=== PATIENT | female | born 2000 | race Caucasian/White ===

== ENCOUNTER 2022-02-12 18:03 | Emergency (ER) | payer OTHER ==
[2022-02-12] MEDS ORDERED: BENZONATATE 100 MG CAPSULE PO STA (18:25)
[2022-02-12] MEDS ORDERED: ONDANSETRON ODT 4 MG TABLET TL STA (18:25)
[2022-02-12 19:34] LABS: CORONAVIRUS 229E-RESP PCR NOT DETECTED
[2022-02-12 19:35] LABS: B. PARAPERTUSSIS- RESP PCR PAN NOT DETECTED; B. PERTUSSIS- RESP PCR PANEL NOT DETECTED; C. PNEUMONIAE- RESP PCR PANEL NOT DETECTED; CORONAVIRUS HKU1-RESP PCR NOT DETECTED; CORONAVIRUS NL63-RESP PCR NOT DETECTED; CORONAVIRUS OC43-RESP PCR NOT DETECTED; HUMAN METAPNEUMOVIRUS NOT DETECTED; INFLUENZA A- RESP PCR PANEL NOT DETECTED; INFLUENZA B - RESP PCR PANEL NOT DETECTED; M. PNEUMONIAE- RESP PCR PANEL NOT DETECTED; PARAINFLUENZA VIRUS 1 NOT DETECTED; PARAINFLUENZA VIRUS 2 NOT DETECTED; PARAINFLUENZA VIRUS 3 NOT DETECTED; PARAINFLUENZA VIRUS 4 NOT DETECTED; RHINOVIRUS/ENTEROVIRUS NOT DETECTED; RSV- RESP PCR PANEL NOT DETECTED; SARS-CoV-2 -RESP PCR PANEL NOT DETECTED
--- NOTE | 2022-02-12 19:55 | ED Physician Documentation ---
History of Present Illness - Stated complaint Stated Complaint: THROAT PX,FEVER - Chief complaint Chief Complaint: Heent - History obtained from History obtained from: Patient - History of Present Illness Timing: Today Pain level max: 0 Pain level now: 0 - Additonal information Additional information: 21-year-old female presents to the emergency department for cough, sore throat, nausea, fever. Started today. She states that she needs a note for work. Her roommate is sick with same. She is COVID vaccinated. Nothing makes it better or worse. Denies any possibility of . Review of Systems Constitutional: reports: Fever Ears: denies: Ear pain Nose: reports: Rhinorrhea / runny nose, Congestion Throat: reports: Sore throat Cardiac: denies: Chest pain / pressure Respiratory: reports: Cough. denies: Dyspnea GI: reports: Nausea. denies: Abdominal Pain, Vomiting, Diarrhea Skin: denies: Rash Musculoskeletal: denies: Neck pain Neurologic: denies: Headache PD PAST MEDICAL HISTORY - Past Medical History Past Medical History: No - Past Surgical History Past Surgical History: No - Present Medications Home Medications: Ambulatory Orders Medication Instructions Recorded Confirmed No Known Home Medications 02/12/22 02/12/22 - Allergies Allergies/Adverse Reactions: Allergies Allergy/AdvReac Type Severity Reaction Status Date / Time No Known Drug Allergies Allergy Verified 02/12/22 18:13 - Living Situation Living Arrangement: reports: At home - Social History Does the pt smoke?: No Does the pt have substance abuse?: No PD ED PE NORMAL - Vitals Vital signs reviewed: Yes - General General: Alert and oriented X 3, No acute distress - HEENT HEENT: PERRL, Ears normal, Moist mucous membranes, Pharynx benign - Neck Neck: Supple, no meningeal sign - Cardiac Cardiac: RRR, Strong equal pulses - Respiratory Respiratory: No respiratory distress, Clear bilaterally - Abdomen Abdomen: Soft, Non tender, Non distended - Derm Derm: Warm and dry - Extremities Extremities: No edema, No calf tenderness / cord - Neuro Neuro: Alert and oriented X 3 - Psych Psych: Normal mood, Normal affect Results - Vitals Vitals: Vital Signs - 24 hr 02/12/22 02/12/22 18:09 20:18 Temperature 36.5 C 37.1 C Heart Rate 84 82 Respiratory 16 16 Rate Blood Pressure 117/72 110/62 O2 Saturation 100 99 Oxygen O2 Source Room air - Labs Labs: Laboratory Tests 02/12/22 18:35 Nasal Adenovirus (PCR) NOT DETECTED Nasal B. parapertussis DNA (PCR) NOT DETECTED Nasal Coronavir 229E PCR NOT DETECTED Nasal Coronavir HKU1 PCR NOT DETECTED Nasal Coronavir NL63 PCR NOT DETECTED Nasal Coronavir OC43 PCR NOT DETECTED Nasal Enterovir/Rhinovir PCR NOT DETECTED Nasal Influenza B PCR NOT DETECTED Nasal Influenza A PCR NOT DETECTED Nasal Parainfluen 1 PCR NOT DETECTED Nasal Parainfluen 2 PCR NOT DETECTED Nasal Parainfluen 3 PCR NOT DETECTED Nasal Parainfluen 4 PCR NOT DETECTED Nasal RSV (PCR) NOT DETECTED Nasal B.pertussis DNA PCR NOT DETECTED Nasal C.pneumoniae (PCR) NOT DETECTED Anish Human Metapneumo PCR NOT DETECTED Nasal M.pneumoniae (PCR) NOT DETECTED Nasal SARS-CoV-2 (PCR) NOT DETECTED PD MEDICAL DECISION MAKING - ED course Complexity details: reviewed results, re-evaluated patient, considered differential, d/w patient ED course: 21-year-old female with what appears to be a viral upper respiratory infection. She is very well-appearing, nontoxic. No hypoxia or respiratory distress. We will continue supportive care and have her follow-up with her doctor. Patient counseled regarding signs and symptoms for which I believe and urgent re- evaluation would be necessary. Patient with good understanding of and agreement to plan and is comfortable going home at this time This document was made in part using voice recognition software. While efforts are made to proofread this document, sound alike and grammatical errors may occur. Departure - Departure Disposition: 01 Home, Self Care Clinical Impression: Viral URI Condition: Good Instructions: ED Viral Syndrome Follow-Up: Your,doctor in 1 week [Other] Comments: Your testing is negative today for COVID and influenza. This appears to be a v iral illness. Please follow-up with your doctor as needed for further care. Return if you worsen. Drink plenty of fluids and Rest Forms: Activity restrictions Discharge Date/Time: 02/12/22 20:18
[2022-02-12 20:20] VITALS: BP 110/62
== END 2022-02-12 20:18 | disposition home or self-care (01) ==
LOC: ED 18:03
DX: J06.9 Acute upper respiratory infection, unspecified (principal); Z20.822 Contact with and (suspected) exposure to COVID-19
CPT/HCPCS: 87633; 99282; 99283; A9270; Q0162

== ENCOUNTER 2022-08-09 10:08 | Outpatient (CLI) | payer OTHER | END 2022-08-09 10:09 | disposition home or self-care (01) | LOC: LAB 10:08 | PROVIDERS: ATTEND Obstetrics & Gynecology | DX: O20.0 Threatened abortion (principal) | CPT/HCPCS: 36415; 84702 ==

== ENCOUNTER 2022-09-29 22:12 | Outpatient (CLI) | payer OTHER ==
--- NOTE | 2022-10-01 08:29 | Ultrasound Report ---
PROCEDURE: Pelvic w/Transvaginal INDICATIONS: RECURRENT MISCARRIAGE TECHNIQUE: Real-time scanning was performed of the pelvic organs, with image documentation. Additional endovagi nal scanning was necessary due to incomplete visualization of the adnexal and endometrial structures by transabdominal scanning. COMPARISON: OB ultrasound, 08/05/2022.. FINDINGS: Uterus: Uterus is anteverted and normal in size at 9.0 x 4.1 x 6.1 cm. The myometrium is heterogene ous. The endometrium measures 11.8 mm in combined thickness. Myometrium and endometrium junction ap pears irregular. Ovaries: The right ovary measures 3.4 x 1.6 x 2.5 cm, with a calculated ovarian volume of 6.9 cc. Th ere is a 1.5 x 1.3 x 1.6 m complex cyst in right ovary, most likely a hematologic cyst. The left ovar y measures 1.9 x 1.7 x 2.6 cm, with a calculated ovarian volume of 4.4 cc. The ovaries have a normal sonographic appearance. Less than 12 follicles can be seen in each ovary. No adnexal masses are se en. Other: No pathologic free abdominal or pelvic fluid. IMPRESSION: 1. Heterogeneous myometrium with irregular junctional zone suggesting adenomyosis. If clinically jl cated, gynecological MRI would be helpful for further evaluation. 2. A 1.9 x 1.7 x 2.6 cm hemorrhagic cyst in right ovary. Reviewed by: Shamika Costa MD on 10/01/2022 8:28 AM PST Approved by: Shamika Costa MD on 10/01/2022 8:28 AM PST Station ID: [id number]
== END 2022-09-29 22:13 | disposition home or self-care (01) ==
LOC: DI 22:12
PROVIDERS: ATTEND Obstetrics & Gynecology
DX: N96 Recurrent pregnancy loss (principal); N83.201 Unspecified ovarian cyst, right side

== ENCOUNTER 2022-10-15 12:52 | Outpatient (CLI) | payer OTHER ==
[2022-10-15 13:45] LABS: THYROID STIMULATING HORMONE 2.23 uIU/mL (0.34-5.60)
[2022-10-15 22:18] LABS: ESTIMATED AVERAGE GLUCOSE 100 mg/dL (70-100); HEMOGLOBIN A1c% 5.1 % (4.27-6.07)
[2022-10-17 16:08] LABS: CARDIOLIPIN IGG <9 GPL U/mL (0-14); CARDIOLIPIN IGM <9 MPL U/mL (0-12)
== END 2022-10-15 12:53 | disposition home or self-care (01) ==
LOC: LAB 12:52
PROVIDERS: ATTEND Obstetrics & Gynecology
DX: N96 Recurrent pregnancy loss (principal)
CPT/HCPCS: 36415; 81599; 83036; 84144; 84443; 85598; 85613; 85732; 86146; 86147

== ENCOUNTER 2022-10-26 15:39 | Emergency (ER) | payer OTHER ==
[2022-10-26 15:47] VITALS: BP 113/65
--- NOTE | 2022-10-26 16:07 | ED Physician Documentation ---
History of Present Illness - Stated complaint Stated Complaint: F/C/V/N - Chief complaint Chief Complaint: Fever - History obtained from History obtained from: Patient - History of Present Illness Timing: Today Pain level max: 2 Pain level now: 1 - Additonal information Additional information: Patient is a 22-year-old female who presents to the emergency department stating that she awoke today with a fever, cough, congestion. Also left ear pain. She was seen at the [facility] and had a COVID and flu swab performed. She states that they told her that she needed to await the results of those tests in order to have a work note, so she came here for a work note as she needs a note for work at the [facility] [employer]. Cough is dry. Emesis x2. No current abdominal pain. Denies any possibility of . No urinary symptoms. Nothing makes it better or worse. 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 HEENT: None Psych: None Musculoskeletal: None Derm: None - Past Surgical History Past Surgical History: No HEENT: Tonsil/Adenoidectomy - Present Medications Home Medications: Ambulatory Orders Medication Instructions Recorded Confirmed Benzonatate [Tessalon] 200 mg PO TID PRN #30 cap 10/26/22 Cetirizine HCl/Pseudoephedrine 1 each PO BID PRN #30 tab 10/26/22 [Zyrtec-D Tablet] Cetirizine [ZyrTEC] 10 mg PO DAILY 10/26/22 10/26/22 Fluticasone [Flonase] 2 sprays EVA DAILY 10/26/22 10/26/22 Ondansetron Odt [Zofran] 4 mg TL Q6H PRN #10 tablet 10/26/22 - Allergies Allergies/Adverse Reactions: Allergies Allergy/AdvReac Type Severity Reaction Status Date / Time No Known Drug Allergies Allergy Verified 10/26/22 15:42 - Social History Does the pt smoke?: No Smoking Status: Never smoker Does the pt drink ETOH?: No Does the pt have substance abuse?: No - Immunizations Immunizations are current?: Yes PD ED PE NORMAL - Vitals Vital signs reviewed: Yes - General General: Alert and oriented X 3, No acute distress - HEENT HEENT: PERRL, Moist mucous membranes, Pharynx benign, Other (Retracted TM bilaterally. no signs of infection) - Neck Neck: Supple, no meningeal sign, No adenopathy - Cardiac Cardiac: RRR, Strong equal pulses - Respiratory Respiratory: No respiratory distress, Clear bilaterally - Abdomen Abdomen: Soft, Non tender, Non distended - Back Back: No CVA TTP, No spinal TTP - Derm Derm: Warm and dry, No rash - Extremities Extremities: No edema - Neuro Neuro: Alert and oriented X 3 - Psych Psych: Normal mood, Normal affect Results - Vitals Vitals: Vital Signs - 24 hr 10/26/22 15:42 Temperature 37.2 C Heart Rate 74 Respiratory 16 Rate Blood Pressure 113/65 O2 Saturation 100 Oxygen O2 Source Room air PD Medical Decision Making - ED course Complexity details: considered differential, d/w patient ED course: 22-year-old female with what appears to be a viral upper respiratory infection. Well-appearing, nontoxic. Afebrile. No hypoxia. No respiratory distress. No evidence of pneumonia, sepsis. No indication for antibiotics. We will place on oral decongestants and have her follow-up with her doctor for further care. Patient counseled regarding signs and symptoms for which I believe and urgent re-evaluation would be necessary. Patient with good understanding of and agreement to plan and is comfortable going home at this time This document was made in part using voice recognition software. While efforts are made to proofread this document, sound alike and grammatical errors may occur. Departure - Departure Disposition: 01 Home, Self Care Clinical Impression: Viral URI Condition: Good Instructions: ED Viral Syndrome Follow-Up: Maicol Carranza MD [Primary Care Provider] - Within 1 week Prescriptions: Benzonatate [Tessalon] 200 mg PO TID PRN #30 cap PRN Reason: Cough Ondansetron Odt [Zofran] 4 mg TL Q6H PRN #10 tablet PRN Reason: Nausea / Vomiting Cetirizine HCl/Pseudoephedrine [Zyrtec-D Tablet] 1 each PO BID PRN #30 tab PRN Reason: nasal congestion Comments: Please follow-up with your doctor for further care. Please return if you worsen. Drink plenty of fluids and rest. Your prescriptions were sent to [facility] in [place]. Please follow-up with the [facility] for the results of the COVID and flu testing you received earlier today. Forms: Activity restrictions Discharge Date/Time: 10/26/22 16:15
== END 2022-10-26 16:15 | disposition home or self-care (01) ==
LOC: ED 15:39
DX: J06.9 Acute upper respiratory infection, unspecified (principal)
CPT/HCPCS: 99283

== ENCOUNTER 2024-03-06 18:25 | Emergency (ER) | payer OTHER ==
[2024-03-06 18:44] VITALS: BP 124/58; O2SAT 100
--- NOTE | 2024-03-06 19:47 | ED Physician Documentation ---
PD HPI LOWER EXT INJURY - Stated complaint Stated Complaint: R FOOT PX - Chief complaint Chief Complaint: Ext Problem - Additional information Additional information: 23-year-old female presents emergency department because her command told her to because of nerve pain to the right foot. Patient had surgery on her right lateral ankle a few years ago where there was a nerve impingement. Patient says that she does not want to be here but is coming into the emergency department because her command told her to if she is able to ambulate without difficulty she is starting to notice some new numbness to the right lateral portion of her foot but still able to ambulate without any weakness. 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 HEENT: None Psych: None Musculoskeletal: None Derm: None - Past Surgical History Past Surgical History: Yes Ortho: Other HEENT: Tonsil/Adenoidectomy - Present Medications Home Medications: Ambulatory Orders Medication Instructions Recorded Confirmed Cetirizine HCl/Pseudoephedrine 1 each PO BID PRN #30 tab 10/26/22 [Zyrtec-D Tablet] Fluticasone [Flonase] 2 sprays EVA DAILY 10/26/22 10/26/22 Gabapentin [Neurontin] 100 mg PO TID #20 cap 03/06/24 - Allergies Allergies/Adverse Reactions: Allergies Allergy/AdvReac Type Severity Reaction Status Date / Time No Known Drug Allergies Allergy Verified 03/06/24 18:42 - Social History Does the pt smoke?: No Smoking Status: Never smoker Does the pt drink ETOH?: No Does the pt have substance abuse?: No - Immunizations Immunizations are current?: Yes - POLST Patient has POLST: No PD ED PE NORMAL - Vitals Vital signs reviewed: Yes - General General: Alert and oriented X 3, No acute distress, Well developed/nourished (Right lower extremity: Well-healed scar to the right lateral malleolus. CMS intact, positive dorsalis pedis pulses, able to flex and extend without any difficulty. Decree sensation to the right lateral portion of patient's foot.) Results - Vitals Vitals: Vital Signs - 24 hr 03/06/24 18:36 Temperature 36.4 C L Heart Rate 80 Respiratory 15 Rate Blood Pressure 124/58 L O2 Saturation 100 Oxygen O2 Source Room air PD Medical Decision Making - ED course ED course: 23-year-old female presents emergency department for right foot numbness and pain. This is most likely due to neuropathy from the nerve impingement. She was started on gabapentin here in the emergency department for nerve pain and prescription sent to her preferred pharmacy. Return precautions given she is told to follow-up with orthopedic surgeon for further evaluation and she says that she plans on having surgery in April to release the nerve impingement entrapment. All questions answered patient safe for discharge. Departure - Departure Disposition: Home, Self Care Clinical Impression: Nerve pain Instructions: ED Neuropathy Peripheral Prescriptions: Gabapentin [Neurontin] 100 mg PO TID #20 cap Comments: Thank for trusting us with your care. You have been evaluated in the emergency department for your neuropathy of the right foot. Continue to follow with with your surgeon for any scheduled outpatient appointments. I have started you on a medication that helps with nerve pain called gabapentin you can take 100 mg 3 times a day as needed for nerve pain. Please follow-up with your primary care provider if you need any refills prior to your surgery. Forms: PCP List Discharge Date/Time: 03/06/24 20:04
[2024-03-06] MEDS: GABAPENTIN 100 MG CAPSULE PO STA (20:01)
== END 2024-03-06 20:04 | disposition home or self-care (01) ==
LOC: ED 18:25
DX: M79.2 Neuralgia and neuritis, unspecified (principal)
CPT/HCPCS: 99283; A9270

== ENCOUNTER 2024-04-06 13:17 | Emergency (ER) | payer OTHER ==
[2024-04-06 13:50] VITALS: O2SAT 100
[2024-04-06 14:43] LABS: B. PARAPERTUSSIS- RESP PCR PAN NOT DETECTED; B. PERTUSSIS- RESP PCR PANEL NOT DETECTED; C. PNEUMONIAE- RESP PCR PANEL NOT DETECTED; CORONAVIRUS 229E-RESP PCR NOT DETECTED; CORONAVIRUS HKU1-RESP PCR NOT DETECTED; CORONAVIRUS NL63-RESP PCR NOT DETECTED; CORONAVIRUS OC43-RESP PCR NOT DETECTED; HUMAN METAPNEUMOVIRUS NOT DETECTED; INFLUENZA A- RESP PCR PANEL NOT DETECTED; INFLUENZA B - RESP PCR PANEL NOT DETECTED; M. PNEUMONIAE- RESP PCR PANEL NOT DETECTED; PARAINFLUENZA VIRUS 1 NOT DETECTED; PARAINFLUENZA VIRUS 2 NOT DETECTED; PARAINFLUENZA VIRUS 3 NOT DETECTED; PARAINFLUENZA VIRUS 4 NOT DETECTED; RHINOVIRUS/ENTEROVIRUS NOT DETECTED; RSV- RESP PCR PANEL NOT DETECTED
[2024-04-06 14:47] LABS: SARS-CoV-2 -RESP PCR PANEL DETECTED
--- NOTE | 2024-04-06 14:50 | ED Physician Documentation ---
PD HPI URI - Stated complaint Stated Complaint: FEVER,COUGH,CONGESTION - Chief complaint Chief Complaint: Heent - History obtained from History obtained from: Patient - Additional information Additional information: She has been sick for about 5 days. Started with what she thought was just allergies but since yesterday has had more head congestion with fever to 102. No cough or shortness of breath. 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 HEENT: None Psych: None Musculoskeletal: None Derm: None Other Past Medical History: right ankle nerve pain - Past Surgical History Past Surgical History: Yes Ortho: Other HEENT: Tonsil/Adenoidectomy - Present Medications Home Medications: Ambulatory Orders Medication Instructions Recorded Confirmed Cetirizine HCl/Pseudoephedrine 1 each PO BID PRN #30 tab 10/26/22 04/06/24 [Zyrtec-D Tablet] Fluticasone [Flonase] 2 sprays EVA DAILY 10/26/22 04/06/24 Gabapentin [Neurontin] 100 mg PO TID #20 cap 03/06/24 04/06/24 Drospirenone/Ethy 04/06/24 Famotidine [Zantac-360 20 mg PO DAILY 04/06/24 04/06/24 (Famotidine)] Spironolactone [Aldactone] 25 mg PO DAILY 04/06/24 04/06/24 - Allergies Allergies/Adverse Reactions: Allergies Allergy/AdvReac Type Severity Reaction Status Date / Time No Known Drug Allergies Allergy Verified 04/06/24 13:43 - Social History Does the pt smoke?: No Smoking Status: Never smoker Does the pt drink ETOH?: No Does the pt have substance abuse?: No - Immunizations Immunizations are current?: Yes - POLST Patient has POLST: No PD ED PE NORMAL - Vitals Vital signs reviewed: Yes - General General: Alert and oriented X 3, No acute distress - HEENT HEENT: Pharynx benign - Cardiac Cardiac: RRR, No murmur - Respiratory Respiratory: No respiratory distress, Clear bilaterally - Abdomen Abdomen: Non tender - Neuro Neuro: Alert and oriented X 3 Results - Vitals Vitals: Vital Signs - 24 hr 04/06/24 13:39 Temperature 36.3 C L Heart Rate 91 Respiratory 16 Rate Blood Pressure 116/80 O2 Saturation 100 Oxygen O2 Source Room air - Labs Labs: Laboratory Tests 04/06/24 13:46 Nasal Adenovirus (PCR) NOT DETECTED Nasal B. parapertussis DNA (PCR) NOT DETECTED Nasal Coronavir 229E PCR NOT DETECTED Nasal Coronavir HKU1 PCR NOT DETECTED Nasal Coronavir NL63 PCR NOT DETECTED Nasal Coronavir OC43 PCR NOT DETECTED Nasal Enterovir/Rhinovir PCR NOT DETECTED Nasal Influenza B PCR NOT DETECTED Nasal Influenza A PCR NOT DETECTED Nasal Parainfluen 1 PCR NOT DETECTED Nasal Parainfluen 2 PCR NOT DETECTED Nasal Parainfluen 3 PCR NOT DETECTED Nasal Parainfluen 4 PCR NOT DETECTED Nasal RSV (PCR) NOT DETECTED Nasal B.pertussis DNA PCR NOT DETECTED Nasal C.pneumoniae (PCR) NOT DETECTED Eva Human Metapneumo PCR NOT DETECTED Nasal M.pneumoniae (PCR) NOT DETECTED Nasal SARS-CoV-2 (PCR) DETECTED A PD Medical Decision Making - ED course ED course: She presents with a nonspecific viral syndrome and tested positive for COVID. She was counseled on the conservative care and return precautions. She needed a work note. Departure - Departure Disposition: 01 Home, Self Care Clinical Impression: COVID-19 Condition: Good Instructions: ED Viral Syndrome Comments: You are seen today for symptomatic COVID. You need to quarantine per [place] guidelines. Tylenol and/or ibuprofen for fevers, aches and pains and drink plenty of fluids. Return for new or worsening symptoms. Forms: PCP List, Activity restrictions
[2024-04-06 15:02] VITALS: BP 118/69
== END 2024-04-06 15:00 | disposition home or self-care (01) ==
LOC: ED 13:17
DX: U07.1 COVID-19 (principal)
CPT/HCPCS: 87633; 99282; 99283

== ENCOUNTER 2024-04-15 09:32 | Outpatient (CLI) | payer OTHER ==
--- NOTE | 2024-04-15 18:11 | Ultrasound Report ---
PROCEDURE: Pelvic w/Transvaginal INDICATIONS: PELVIC PAIN TECHNIQUE: Real-time scanning was performed of the pelvic organs, with image documentation. Additional endovagi nal scanning was necessary due to incomplete visualization of the adnexal and endometrial structures by transabdominal scanning. COMPARISON: Pelvic ultrasound 09/29/2022 FINDINGS: Uterus: Uterus is anteverted and normal in size at 8.2 x 4.2 x 4.8 cm. The myometrium is homogeneou s. The endometrium measures 1.3 mm in combined thickness. Ovaries: The right ovary measures 2.6 x 1.4 x 1.9 cm, with a calculated ovarian volume of 3.7 cc. T he left ovary measures 2.6 x 1.1 x 1.2 cm, with a calculated ovarian volume of 1.8 cc. The ovaries h ave a normal sonographic appearance. Less than 12 follicles can be seen in each ovary. No adnexal m asses are seen. No cystic lesions measuring greater than 3 cm. Other: No pathologic free abdominal or pelvic fluid. IMPRESSION: Unremarkable exam. Reviewed by: Vidhi Agrawal MD on 04/15/2024 6:09 PM PDT Approved by: Vidhi Agrawal MD on 04/15/2024 6:09 PM PDT Station ID: [id number]
== END 2024-04-15 09:33 | disposition home or self-care (01) ==
LOC: DI 09:32
PROVIDERS: ATTEND Nurse Practitioner
DX: R10.2 Pelvic and perineal pain (principal)

== ENCOUNTER 2024-04-30 15:01 | Outpatient (CLI) | payer OTHER ==
[2024-04-30 15:52] LABS: THYROID STIMULATING HORMONE 3.99 uIU/mL (0.34-5.60)
== END 2024-04-30 15:02 | disposition home or self-care (01) ==
LOC: LAB 15:01
PROVIDERS: ATTEND Nurse Practitioner
DX: N96 Recurrent pregnancy loss (principal)
CPT/HCPCS: 36415; 81599; 84443

== ENCOUNTER 2024-05-17 14:00 | Outpatient (CLI) | payer OTHER ==
[~2024-05-17 14:00] MED LIST: GADOTERATE MEGLUMINE 7.5 MMOL/15 ML VIAL ONE
[2024-05-17] MEDS: GADOTERATE MEGLUMINE 7.5 MMOL/15 ML VIAL IVP ONE (15:07)
--- NOTE | 2024-05-18 13:48 | MRI Report ---
PROCEDURE: Pelvis W/WO INDICATIONS: HISTORY OF RECURRENT MISCARRIAGE, PELVIC PAIN CONTRAST: IV contrast TECHNIQUE: Coronal ultra fast SE, sagittal T2 FSE, axial T1 FSE, axial and coronal nonbreath-hold T2 FSE. Axial dynamic ultra fast GE during administration of contrast. Post-contrast axial and coronal ultra fast GE / 2-D spoiled GE with fat saturation from the iliac crests to the symphysis. Optional diffusion weighted imaging and ADC may be performed. COMPARISON: 04/15/2024 ultrasound FINDINGS: Image quality: Diagnostic Lower abdomen: No bowel obstruction or pathologic ascites Bladder: Unremarkable Reproductive organs: The ovaries appear unremarkable. No evidence of endometrioma or significant hydr osalpinx. Endometrium is thickened at 5 mm. The junctional zone measures 8 mm, within normal limits. On precontrast T1-weighted images, foci of intrinsic T1 signal is seen in the endocervix. Anteverted uterus. No suspicious mass lesion Trace pelvic free fluid, probably physiologic No late findings of deep pelvic endometriosis on precontrast T1-weighted images. Rectum: Unremarkable Vessels and lymph nodes: No aneurysmal vessel or pathologic lymphadenopathy identified Pelvic wall: Unremarkable Bones: No acute or suspicious osseous finding. IMPRESSION: No significant ovarian abnormality. No significant uterine abnormality. Normal thickness of the endo metrium without mass lesion identified. Junctional zone is also normal thickness. Incidental note of transient T1 signal within the endocervix, suggestive of hemorrhagic products. 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 Reviewed by: Placido Elizondo MD on 05/18/2024 1:47 PM PDT Approved by: Placido Elizondo MD on 05/18/2024 1:47 PM PDT Station ID: [id number]
== END 2024-05-17 14:01 | disposition home or self-care (01) ==
LOC: DI 14:00
PROVIDERS: ATTEND Nurse Practitioner
DX: N96 Recurrent pregnancy loss (principal); R93.89 Abnormal findings on diagnostic imaging of other specified body structures